=== PATIENT | female | born 1950 | race Caucasian/White ===

== ENCOUNTER 2017-02-14 09:59 | Inpatient (IN) | payer OTHER ==
[2017-02-14 13:26] VITALS: BMI 20.2
--- NOTE | 2017-02-14 13:59 | HP ---
Admission [facility] Chief Complaint: I need rehab before my drinking becomes a real problem. Allergies/Adverse Reactions: Allergies Allergy/AdvReac Type Severity Reaction Status Date / Time codeine Allergy Severe Nausea Verified 02/14/17 13:11 Fish Containing Products Allergy Severe Swelling Verified 02/14/17 13:11 Penicillins Allergy Severe Difficulty Verified 02/14/17 13:11 Breathing History of Present Illness: pt is a 66yr old female with a history of alcohol dependence seeking rehab for treatment. pt was not in detox for alcohol dependence her last drink was Tuesday. Exam Limitations: No Limitations - Ebola screening Have you traveled outside of the country in the last 21 days: No Have you had contact with anyone from an Ebola affected area: No Have you been sick,other than usual withdrawal symptoms: No - Review of Systems Constitutional: No Symptoms Reported EENT: reports: No Symptoms Reported Respiratory: reports: No Symptoms reported Cardiac: reports: No Symptoms Reported GI: reports: No Symptoms Reported : reports: No Symptoms Reported Musculoskeletal: reports: No Symptoms Reported Integumentary: reports: No Symptoms Reported Neuro: reports: Headache Endocrine: reports: No Symptoms Reported Hematology: reports: No Symptoms Reported Psychiatric: reports: Judgement Intact, Mood/Affect Appropiate, Orientated x3, Agitated, Anxious Other Systems: Reviewed and Negative Patient History - Patient Medical History Hx Anemia: No Hx Asthma: No Hx Chronic Obstructive Pulmonary Disease (COPD): No Hx Cancer: No Hx Cardiac Disorders: No Hx Congestive Heart Failure: No Hx Hypertension: No Hx Hypercholesterolemia: No Hx Pacemaker: No HX Cerebrovascular Accident: No Hx Seizures: No Hx Dementia: No Hx Diabetes: No Hx Gastrointestinal Disorders: No Hx Liver Disease: No Hx Genitourinary Disorders: No Hx Sexually Transmitted Disorders: No Hx Renal Disease (ESRD): No Hx Thyroid Disease: No Hx Human Immunodeficiency Virus (HIV): No Hx Hepatitis C: No Hx Depression: No Hx Suicide Attempt: No (denies) Hx Bipolar Disorder: No Hx Schizophrenia: No - Patient Surgical History Hx Cardiac Surgery: Yes (both eye 08/2016) Hx Section: Yes (one many years ago) - PPD History Previous Implant?: Yes Documented Results: Negative w/o proof PPD to be Administered?: Yes - Reproductive History Patient is a Female of Child Bearing Age (11 -55 yrs old): No - Smoking Cessation Smoking history: Current every day smoker Have you smoked in the past 12 months: Yes Aproximately how many cigarettes per day: 10 Hx Chewing Tobacco Use: No Initiated information on smoking cessation: Yes 'Breaking Loose' booklet given: 02/14/17 - Substance & Tx. History Hx Alcohol Use: Yes Hx Substance Use: No Substance Use Type: Alcohol Hx Substance Use Treatment: No - Substances Abused Alcohol Route: Oral Frequency: 1-2 times per week Amount used: 1/2 PINT Age of first use: 64 Date of Last Use: 02/09/17 Family Disease History - Family Disease History Family History: Denies Admission Physical Exam [facility] - Vital Signs Vital Signs: Vital Signs - 24 hr 02/14/17 13:24 Temperature 97.4 F L Pulse Rate 79 Respiratory 20 Rate Blood Pressure 159/78 - Physical General Appearance: Yes: Appropriately Dressed, Moderate Distress, Thin, Tremorous, Irritable, Sweating, Anxious HEENTM: Yes: Normal Voice Respiratory: Yes: Lungs Clear, Normal Breath Sounds, No Respiratory Distress Neck: Yes: No masses,lesions,Nodules Breast: Yes: Within Normal Limits Cardiology: Yes: Regular Rhythm, Regular Rate, S1, S2 Abdominal: Yes: Normal Bowel Sounds, Non Tender, Flat Genitourinary: Yes: Within Normal Limits Back: Yes: Normal Inspection Musculoskeletal: Yes: full range of Motion, Gait Steady Extremities: Yes: Normal Capillary Refill, Normal Inspection Neurological: Yes: Within Normal Limits, Fully Oriented, Alert, Normal Response Integumentary: Yes: Normal Color Lymphatic: Yes: Within Normal Limits - Diagnostic (1) Alcohol dependence Current Visit: Yes Status: Chronic Qualifiers: Substance use status: uncomplicated Qualified Code(s): F10.20 - Alcohol dependence, uncomplicated (2) Nicotine dependence Current Visit: Yes Status: Chronic Qualifiers: Nicotine product type: cigarettes Substance use status: uncomplicated Qualified Code(s): F17.210 - Nicotine dependence, cigarettes, uncomplicated (3) H/O cystic fibrosis Current Visit: No Status: Chronic Cleared for Admission [facility] - Detox or Rehab [facility] Level of Care: Medically Managed Claeared for Rehab Admission: Yes [facility] Breath Alcohol Content Breath Alcohol Content: 0 Urine Pregancy Test - Result Urine Test Results: Negative- NO Line Present Urine Drug Screen - Results Drug Screen Negative: Yes
[2017-02-14] MEDS ORDERED: hydrOXYzine PAMOATE 50 MG CAPSULE (FP) PO PRN (14:07)
[2017-02-14] MEDS ORDERED: ACETAMINOPHEN 325 MG TABLET (FP) PO PRN (14:07)
[2017-02-14] MEDS ORDERED: MAGNESIUM CITRATE 300 ML BOTTLE PO PRN (14:07)
[2017-02-14] MEDS ORDERED: MAG HYDROX/AL HYDROX/SIMETH 30 ML UNIT-DOSE CUP PO PRN (14:07)
[2017-02-14] MEDS ORDERED: LOPERAMIDE HCL 2 MG CAPSULE PO PRN (14:07)
[2017-02-14] MEDS ORDERED: P-EPHED 60MG/TRIPROLIDI 2.5MG TABLET PO PRN (14:07)
[2017-02-14] MEDS ORDERED: MAGNESIUM HYDROX 2400MG/30ML ORAL SUSPENSION 30 ML CUP PO PRN (14:07)
[2017-02-14] MEDS ORDERED: guaiFENesin/D-METHORPHAN HB 10 ML UNIT-DOSE CUPS PO PRN (14:07)
[2017-02-14] MEDS ORDERED: NICOTINE POLACRILEX 4 MG GUM BUC PRN (14:07)
[2017-02-14] MEDS ORDERED: MENTHOL/PHENOL 1 EACH UD MM PRN (14:07)
--- NOTE | 2017-02-14 17:11 | HP ---
Psychiatrist Admission - Data Date of interview: 02/14/17 Admission source: [facility] Identifying data: This is the first admission to [facility] for this 66 years old female,resides with daughter,supported by [facility]. Medical History: Significant for H/O Cystic fibrosis. Psychiatric History: denies psychiatric history,no suicidality,no psychiatric admissions,.Reports being placed on Lexapro 20 mg po daily by her PCP a few years ago to addres depressed mood,drinking and is willing to continue . Physical/Sexual Abuse/Trauma History: denies Vital Signs: Vital Signs - 24 hr 02/14/17 13:24 Temperature 97.4 F L Pulse Rate 79 Respiratory 20 Rate Blood Pressure 159/78 Allergies/Adverse Reactions: Allergies Allergy/AdvReac Type Severity Reaction Status Date / Time codeine Allergy Severe Nausea Verified 02/14/17 13:11 Fish Containing Products Allergy Severe Swelling Verified 02/14/17 13:11 Penicillins Allergy Severe Difficulty Verified 02/14/17 13:11 Breathing Date of last physical exam: 02/14/17 Concur with the findings of this exam: Yes - Substance Abuse/Tx History Hx Alcohol Use: Yes (reports drinking since 64 years old,1/2 pint of vodka 2 times a week) Hx Substance Use: No Substance Use Type: Alcohol Hx Substance Use Treatment: Yes (this is her first inpatient rehabilitation treatment) Mental Status Exam - Mental Status Exam Alert and Oriented to: Time, Place, Person Cognitive Function: Grossly Intact Patient Appearance: Unkempt Mood: Anxious, Euthymic Affect: Mood Congruent Patient Behavior: Cooperative Speech Pattern: Clear Voice Loudness: Normal Thought Process: Goal Oriented Thought Disorder: Not Present Hallucinations: Denies Suicidal Ideation: Denies Homicidal Ideation: Denies Insight/Judgement: Fair Sleep: Fair Appetite: Good Muscle strength/Tone: Normal Gait/Station: Normal Psychiatric Findings - Problem List ([place] 1, 2,3) (1) Alcohol dependence Current Visit: Yes Status: Chronic Qualifiers: Substance use status: uncomplicated Qualified Code(s): F10.20 - Alcohol dependence, uncomplicated (2) Nicotine dependence Current Visit: Yes Status: Chronic Qualifiers: Nicotine product type: cigarettes Substance use status: uncomplicated Qualified Code(s): F17.210 - Nicotine dependence, cigarettes, uncomplicated (3) H/O cystic fibrosis Current Visit: Yes Status: Chronic (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
[2017-02-14] MEDS: ARTIFICIAL TEARS (POLYVINYL ALCOHOL 1.4%) OPTH DROPS OU SCH ×2 (20:07→21:57)
[2017-02-14 20:25] LABS: URINE APPEARANCE CLEAR; URINE BILIRUBIN NEGATIVE (NEGATIVE); URINE BLOOD NEGATIVE (NEGATIVE); URINE COLOR STRAW; URINE GLUCOSE (UA) NEGATIVE (NEGATIVE); URINE KETONE NEGATIVE (NEGATIVE); URINE NITRITE NEGATIVE (NEGATIVE); URINE PROTEIN NEGATIVE (NEGATIVE); URINE UROBILINOGEN NEGATIVE mg/dL (0.2-1.0)
[2017-02-14] MEDS: THIAMINE HCL 100 MG TABLET (FP) PO SCH (21:57)
[2017-02-14 22:48] LABS: URINE LEUK ESTERASE Negative (NEGATIVE)
[2017-02-15] MEDS: IBUPROFEN 400 MG TABLET (FP) PO PRN ×2 (06:27→21:55)
[2017-02-15 10:01] LABS: MCH 28.3 pg (25.7-33.7); MEAN CELL VOLUME 88.5 fl (80-96); MEAN PLT VOLUME 10.6 fl (7.5-11.1); PLATELET COUNT 346 K/MM3 (134-434); RDW 14.6 % (11.6-15.6); WHITE BLOOD COUNT 14.5 K/mm3 (4.0-10.0)
[2017-02-15 10:28] LABS: ALBUMIN 4.1 g/dl (3.4-5.0); ALK PHOS 85 U/L (45-117); ANION GAP 9 (8-16); BILIRUBIN,TOTAL 0.5 mg/dL (0.2-1.0); CALCIUM 9.5 mg/dL (8.5-10.1); CO2 29 mmol/L (21-32); CREATININE 0.8 mg/dL (0.55-1.02); GLUCOSE,RANDOM 173 mg/dL (74-106); SGOT/AST 20 U/L (15-37); SGPT/ALT 20 U/L (12-78); TOT PROT 7.6 g/dl (6.4-8.2)
[2017-02-15] MEDS: ESCITALOPRAM OXALATE 20 MG TABLET (FP) PO SCH (10:32)
[2017-02-15] MEDS: ARTIFICIAL TEARS (POLYVINYL ALCOHOL 1.4%) OPTH DROPS OU SCH ×4 (10:32→21:55)
[2017-02-15] MEDS: PRENATAL VITAMINS W/ FOLIC ACID TABLET (FP) PO SCH (10:32)
[2017-02-15] MEDS: NICOTINE 21 MG/24 HOURS TOPICAL PATCH TD SCH (10:33)
[2017-02-15] MEDS ORDERED: PT OWN MED DRAWER 7, Y5N ONE ×2 (11:06→12:16)
[2017-02-15] MEDS: METHIMAZOLE 5 MG TABLET (FP) PO SCH (16:00)
[2017-02-15] MEDS: THIAMINE HCL 100 MG TABLET (FP) PO SCH (21:54)
[2017-02-16] MEDS: IBUPROFEN 400 MG TABLET (FP) PO PRN ×2 (06:47→21:58)
--- NOTE | 2017-02-16 08:01 | EKG ---
Test Reason : Blood Pressure : / mmHG Vent. Rate : 081 BPM Atrial Rate : 081 BPM P-R Int : 126 ms QRS Dur : 074 ms QT Int : 416 ms P-R-T Axes : 074 079 076 degrees QTc Int : 483 ms NORMAL SINUS RHYTHM NORMAL ECG NO PREVIOUS ECGS AVAILABLE Confirmed by MD Feng Daniel ([id number]) on 02/15/2017 3:04:08 PM Also confirmed by MD Feng Daniel [id number]), subeditor JAH HUMPHREYS ([id number]) on 02/16/2017 8:00:29 AM Referred By: Confirmed By:Jah Feng MD
[2017-02-16] MEDS ORDERED: PT OWN MED DRAWER 7, Y5N ONE ×3 (09:08→21:58)
[2017-02-16] MEDS: ARTIFICIAL TEARS (POLYVINYL ALCOHOL 1.4%) OPTH DROPS OU SCH ×4 (10:31→21:57)
[2017-02-16] MEDS: PRENATAL VITAMINS W/ FOLIC ACID TABLET (FP) PO SCH (10:32)
[2017-02-16] MEDS: ESCITALOPRAM OXALATE 20 MG TABLET (FP) PO SCH (10:32)
[2017-02-16] MEDS: METHIMAZOLE 5 MG TABLET (FP) PO SCH (10:32)
[2017-02-16] MEDS: NICOTINE 21 MG/24 HOURS TOPICAL PATCH TD SCH (10:32)
[2017-02-16] MEDS ORDERED: LISINOPRIL 5 MG TABLET (FP) PO ONE (11:01)
[2017-02-16] MEDS: THIAMINE HCL 100 MG TABLET (FP) PO SCH (21:56)
[2017-02-17] MEDS: IBUPROFEN 400 MG TABLET (FP) PO PRN (07:13)
[2017-02-17] MEDS ORDERED: LISINOPRIL 5 MG TABLET (FP) PO SCH (10:00)
[2017-02-17] MEDS: ARTIFICIAL TEARS (POLYVINYL ALCOHOL 1.4%) OPTH DROPS OU SCH ×4 (10:30→21:51)
[2017-02-17] MEDS: METHIMAZOLE 5 MG TABLET (FP) PO SCH (10:31)
[2017-02-17] MEDS: PRENATAL VITAMINS W/ FOLIC ACID TABLET (FP) PO SCH (10:31)
[2017-02-17] MEDS: ESCITALOPRAM OXALATE 20 MG TABLET (FP) PO SCH (10:31)
[2017-02-17] MEDS: NICOTINE 21 MG/24 HOURS TOPICAL PATCH TD SCH (10:31)
--- NOTE | 2017-02-17 12:12 | PN ---
S Progress Note Note: srinivasan does not want to take lisinopril says she is concerned re side effects bp Vital Signs - 24 hr 02/16/17 02/17/17 02/17/17 12:50 00:30 03:30 Temperature Pulse Rate 71 Respiratory 16 16 Rate Blood Pressure 129/69 02/17/17 02/17/17 07:22 09:05 Temperature 98.0 F Pulse Rate 69 74 Respiratory 16 Rate Blood Pressure 137/69 135/70 note bp are lowered discussed risks of untreated htn she will fu on dc and we will cont to monitor and determine necessity on an ongoing basis
[2017-02-17] MEDS ORDERED: PT OWN MED DRAWER 7, Y5N ONE (12:29)
[2017-02-17] MEDS: THIAMINE HCL 100 MG TABLET (FP) PO SCH (21:50)
[2017-02-18] MEDS: IBUPROFEN 400 MG TABLET (FP) PO PRN (06:37)
[2017-02-18] MEDS: PRENATAL VITAMINS W/ FOLIC ACID TABLET (FP) PO SCH (10:40)
[2017-02-18] MEDS: METHIMAZOLE 5 MG TABLET (FP) PO SCH (10:40)
[2017-02-18] MEDS: ESCITALOPRAM OXALATE 20 MG TABLET (FP) PO SCH (10:40)
[2017-02-18] MEDS: NICOTINE 21 MG/24 HOURS TOPICAL PATCH TD SCH (10:41)
[2017-02-18] MEDS: ARTIFICIAL TEARS (POLYVINYL ALCOHOL 1.4%) OPTH DROPS OU SCH ×4 (10:41→22:10)
[2017-02-18] MEDS ORDERED: PT OWN MED DRAWER 7, Y5N ONE ×2 (10:48→19:55)
[2017-02-18 11:04] LABS: ANION GAP 9 (8-16); CALCIUM 9.5 mg/dL (8.5-10.1); CO2 31 mmol/L (21-32); CREATININE 0.7 mg/dL (0.55-1.02); GLUCOSE,RANDOM 87 mg/dL (74-106)
[2017-02-18] MEDS: THIAMINE HCL 100 MG TABLET (FP) PO SCH (22:10)
[2017-02-19] MEDS ORDERED: PT OWN MED DRAWER 7, Y5N ONE ×2 (08:27→11:08)
[2017-02-19] MEDS: ESCITALOPRAM OXALATE 20 MG TABLET (FP) PO SCH (10:31)
[2017-02-19] MEDS: NICOTINE 21 MG/24 HOURS TOPICAL PATCH TD SCH (10:32)
[2017-02-19] MEDS: METHIMAZOLE 5 MG TABLET (FP) PO SCH (10:32)
[2017-02-19] MEDS: ARTIFICIAL TEARS (POLYVINYL ALCOHOL 1.4%) OPTH DROPS OU SCH ×4 (10:32→21:54)
[2017-02-19] MEDS: PRENATAL VITAMINS W/ FOLIC ACID TABLET (FP) PO SCH (10:32)
[2017-02-19] MEDS: THIAMINE HCL 100 MG TABLET (FP) PO SCH (21:55)
[2017-02-19] MEDS: IBUPROFEN 400 MG TABLET (FP) PO PRN (21:59)
[2017-02-20] MEDS ORDERED: PT OWN MED DRAWER 7, Y5N ONE (08:34)
[2017-02-20] MEDS: METHIMAZOLE 5 MG TABLET (FP) PO SCH (10:27)
[2017-02-20] MEDS: PRENATAL VITAMINS W/ FOLIC ACID TABLET (FP) PO SCH (10:28)
[2017-02-20] MEDS: ESCITALOPRAM OXALATE 20 MG TABLET (FP) PO SCH (10:28)
[2017-02-20] MEDS: ARTIFICIAL TEARS (POLYVINYL ALCOHOL 1.4%) OPTH DROPS OU SCH ×4 (10:28→21:54)
[2017-02-20] MEDS: NICOTINE 21 MG/24 HOURS TOPICAL PATCH TD SCH (10:29)
[2017-02-20] MEDS: IBUPROFEN 400 MG TABLET (FP) PO PRN (12:50)
[2017-02-20] MEDS: THIAMINE HCL 100 MG TABLET (FP) PO SCH (21:53)
[2017-02-21 07:29] VITALS: TEMP 98.1
[2017-02-21] MEDS ORDERED: PT OWN MED DRAWER 7, Y5N ONE (08:57)
[2017-02-21] MEDS: PRENATAL VITAMINS W/ FOLIC ACID TABLET (FP) PO SCH (10:36)
[2017-02-21] MEDS: METHIMAZOLE 5 MG TABLET (FP) PO SCH (10:36)
[2017-02-21] MEDS: NICOTINE 21 MG/24 HOURS TOPICAL PATCH TD SCH (10:36)
[2017-02-21] MEDS: ARTIFICIAL TEARS (POLYVINYL ALCOHOL 1.4%) OPTH DROPS OU SCH ×4 (10:36→21:50)
[2017-02-21] MEDS: ESCITALOPRAM OXALATE 20 MG TABLET (FP) PO SCH (10:36)
[2017-02-21] MEDS: IBUPROFEN 400 MG TABLET (FP) PO PRN (10:37)
[2017-02-21] MEDS: THIAMINE HCL 100 MG TABLET (FP) PO SCH (21:50)
[2017-02-22] MEDS: IBUPROFEN 400 MG TABLET (FP) PO PRN (06:58)
[2017-02-22 07:18] VITALS: BP 138/76; PULSE 77
[2017-02-22] MEDS: METHIMAZOLE 5 MG TABLET (FP) PO SCH (09:08)
[2017-02-22] MEDS: ARTIFICIAL TEARS (POLYVINYL ALCOHOL 1.4%) OPTH DROPS OU SCH (09:08)
[2017-02-22] MEDS: NICOTINE 21 MG/24 HOURS TOPICAL PATCH TD SCH (09:09)
[2017-02-22] MEDS: ESCITALOPRAM OXALATE 20 MG TABLET (FP) PO SCH (09:09)
[2017-02-22] MEDS: PRENATAL VITAMINS W/ FOLIC ACID TABLET (FP) PO SCH (09:09)
--- NOTE | 2017-02-22 11:23 | PN ---
[facility] Progress Note Note: patient has completed today treatment and was discharged today in stable condition.
== END 2017-02-22 10:05 | disposition home or self-care (01) | DRG 895 ==
LOC: YASAS 09:59 → Y3E 15:21
PROVIDERS: ADMIT Psychiatry & Neurology Psychiatry; ATTEND Psychiatry & Neurology Psychiatry
PROC: HZ42ZZZ Group Counseling for Substance Abuse Treatment, Cognitive-Behavioral (ICD-10-PCS; principal; 2017-02-14)
DX: F10.20 Alcohol dependence, uncomplicated (principal); F19.20 Other psychoactive substance dependence, uncomplicated; F10.24 Alcohol dependence with alcohol-induced mood disorder; F17.210 Nicotine dependence, cigarettes, uncomplicated; Z87.09 Personal history of other diseases of the respiratory system
CPT/HCPCS: 36415; 80048; 80053; 81003; 83036; 85027; 86593; 93005; 93010